=== PATIENT | female | born 1975 | race Caucasian/White ===

== ENCOUNTER 2019-12-01 17:21 | Observation (INO) ==
[2019-12-01] MEDS ORDERED: Isovue-370 500 ML BOTTLE IVP ONE (20:23)
[2019-12-01 21:04] LABS: Bilirubin,Urine Negative (Negative); Blood,Urine Negative (Negative); Clarity,Urine Clear (Clear); Color,Urine Light-Yellow (Yellow); Glucose,Urine (UA) Normal (Normal); Ketones,Urine Negative (Negative); Leukocyte Esterase,Urine Negative (Negative); Nitrite,Urine Negative (Negative); Protein,Urine Trace mg/dL (Neg-Trace); Specific Gravity,Urine 1.021 (1.010-1.025); Urobilinogen,Urine Normal (Normal)
[2019-12-01 21:45] LABS: Basophils % 0.5 %; Eosinophils # 0.2 K/mcL (0.0-0.6); Eosinophils % 1.7 %; Hematocrit 31.5 % (35.3-44.9); Hemoglobin 8.8 g/dL (11.5-15.4); Immature Granulocytes % 0.2 % (0-4); Lymphocytes # 1.8 K/mcL (0.6-4.6); Lymphocytes % 20.6 %; Mean Corpuscular HGB Conc 27.9 g/dL (31.6-35.5); Mean Corpuscular Hemoglobin 19.6 pg (28.0-33.3); Mean Platelet Volume 9.3 fL (9.4-12.4); Monocytes # 0.5 K/mcL (0.0-1.3); Monocytes % 5.9 %; Neutrophils # 6.2 K/mcL (1.6-8.9); Platelet Count 283 K/mcL (140-400); Red Cell Distribution Width 19.1 % (11.5-14.5); Segmented Neutrophils % 71.1 %; White Blood Count 8.7 K/mcL (4.3-11.1)
[2019-12-01 22:01] LABS: BUN/Creatinine Ratio 21 (6-26); Blood Urea Nitrogen 12 mg/dL (6-20); Calcium 8.8 mg/dL (8.6-10.3); Carbon Dioxide 27 mEq/L (23-29); Chloride 101 mEq/L (98-107); Glucose 94 mg/dL (70-105); Osmolality,Calculated 280 (280-300); Potassium 3.9 mEq/L (3.5-5.1); Sodium 135 mEq/L (136-145); eGFR For African Americans > 60 (> 60); eGFR For Non-African Americans > 60 (> 60)
[2019-12-01 22:02] LABS: Troponin I < 0.03 ng/mL (< 0.04)
[2019-12-01 22:06] LABS: Hypochromasia Present (Not Present); Polychromasia 1+ (Not Present)
[2019-12-01 22:59] LABS: Alanine Aminotransferase 16 Units/L (7-52); Albumin 3.7 g/dL (3.5-5.7); Albumin/Globulin Ratio 0.8 (1.1-2.2); Alkaline Phosphatase 107 Units/L (34-104); Aspartate Amino Transferase 16 Units/L (13-39); Bilirubin,Direct 0.1 mg/dL (0.0-0.2); Bilirubin,Indirect 0.2 mg/dL (0.0-1.0); Bilirubin,Total 0.3 mg/dL (0.3-1.0); Globulin 4.4 g/dL (2.4-3.5); Total Protein 8.1 g/dL (6.4-8.9)
[2019-12-02 02:38] LABS: Adenovirus Not Detected (Not Detect); Bordetella Pertussis Not Detected (Not Detect); Chlamydophila pneumoniae Not Detected (Not Detect); Coronavirus 229E Not Detected (Not Detect); Coronavirus HKU1 Not Detected (Not Detect); Coronavirus NL63 Not Detected (Not Detect); Coronavirus OC43 Not Detected (Not Detect); Human Metapneumovirus Not Detected (Not Detect); Human Rhinovirus/Enterovirus Not Detected (Not Detect); Influenza A Subtype 2009 H1 Not Detected (Not Detect); Influenza B Not Detected (Not Detect); Mycoplasma pneumoniae Not Detected (Not Detect); Parainfluenza Virus 1 Not Detected (Not Detect); Parainfluenza Virus 2 Not Detected (Not Detect); Parainfluenza Virus 3 Not Detected (Not Detect); Parainfluenza Virus 4 Not Detected (Not Detect); Respiratory Syncytial Virus Not Detected (Not Detect); SARS-CoV-2 Not Detected (Not Detect)
[2019-12-02] MEDS ORDERED: Acetaminophen 325 MG TABLET PO PRN (04:30)
[2019-12-02] MEDS ORDERED: Naloxone 0.4 MG/ML INJ IVP PRN (04:30)
[2019-12-02] MEDS ORDERED: Perflutren Lipid Microsphere 1.3 ML in 0.9 % Sodium Chloride 8.7 ML IVP PRN (06:14)
[2019-12-02 06:29] LABS: INR 1.2; Prothrombin Time 13.5 Seconds (9.4-12.1)
[2019-12-02 06:31] LABS: Hematocrit 31.5 % (35.3-44.9); Hemoglobin 8.7 g/dL (11.5-15.4); Mean Corpuscular HGB Conc 27.6 g/dL (31.6-35.5); Mean Corpuscular Hemoglobin 19.5 pg (28.0-33.3); Mean Corpuscular Volume 70.5 fL (83.0-100.0); Mean Platelet Volume 9.3 fL (9.4-12.4); Platelet Count 275 K/mcL (140-400); Red Blood Count 4.47 M/mcL (3.82-4.97); Red Cell Distribution Width 19.2 % (11.5-14.5); White Blood Count 8.5 K/mcL (4.3-11.1)
[2019-12-02 06:41] LABS: Phosphorous 3.2 mg/dL (2.7-4.5)
[2019-12-02 06:47] LABS: % Iron Saturation 3 % (15-50); Iron 17 mcg/dL (50-170); Transferrin 432 mg/dL (203-362)
[2019-12-02 06:57] LABS: Thyroid Stimulating Hormone 0.901 mcIU/mL (0.340-5.600)
[2019-12-02 07:05] LABS: Ferritin < 8 ng/mL (10-120)
[2019-12-02 07:07] LABS: Folate 5.4 ng/mL (3.0-16.0)
[2019-12-02] MEDS: Pantoprazole 40 MG VIAL IVP SCH (08:08)
[2019-12-02] MEDS: Gabapentin 300 MG CAPSULE PO SCH ×3 (14:47→21:08)
[2019-12-02] MEDS ORDERED: Iron Sucrose Complex 250 MG in 0.9 % Sodium Chloride 250 ML IVPB SCH (16:30)
[2019-12-02] MEDS: Iron Sucrose Complex 250 MG in 0.9 % Sodium Chloride 250 ML IVPB SCH (18:22)
[2019-12-02] MEDS: *HR* Promethazine 25 MG/ML VIAL IVP PRN (21:12)
[2019-12-03 06:38] LABS: Hematocrit 34.6 % (35.3-44.9); Mean Corpuscular Hemoglobin 18.9 pg (28.0-33.3); Mean Corpuscular Volume 72.5 fL (83.0-100.0); Mean Platelet Volume 10.2 fL (9.4-12.4); Platelet Count 226 K/mcL (140-400); Red Blood Count 4.77 M/mcL (3.82-4.97); Red Cell Distribution Width 19.6 % (11.5-14.5); White Blood Count 6.4 K/mcL (4.3-11.1)
[2019-12-03 07:00] LABS: BUN/Creatinine Ratio 19 (6-26); Blood Urea Nitrogen 11 mg/dL (6-20); Calcium 8.8 mg/dL (8.6-10.3); Carbon Dioxide 23 mEq/L (23-29); Chloride 104 mEq/L (98-107); Glucose 96 mg/dL (70-105); Osmolality,Calculated 277 (280-300); Potassium 3.8 mEq/L (3.5-5.1); Sodium 134 mEq/L (136-145); eGFR For African Americans > 60 (> 60); eGFR For Non-African Americans > 60 (> 60)
[2019-12-03] MEDS ORDERED: Lidocaine -MPF 2% 5 ML VIAL SQ ONE (11:35)
[2019-12-03] MEDS ORDERED: *HR* Propofol 500 MG/50 ML BOTTLE IVP ONE (11:35)
[2019-12-03] MEDS: Pantoprazole 40 MG VIAL IVP SCH (11:44)
[2019-12-03 15:04] LABS: Hepatitis B Surface Antigen Nonreactive (Nonreactive)
[2019-12-03 15:33] LABS: Hepatitis B Core IgM Nonreactive (Nonreactive)
[2019-12-03 15:35] LABS: Hepatitis A Antibody IgM Nonreactive (Nonreactive)
[2019-12-03 17:43] LABS: Hepatitis C Virus Antibody Reactive (Nonreactive)
[2019-12-03] MEDS: Iron Sucrose Complex 250 MG in 0.9 % Sodium Chloride 250 ML IVPB SCH (17:57)
[2019-12-03] MEDS ORDERED: diazePAM 5 MG TABLET PO SCH (18:00)
[2019-12-03] MEDS ORDERED: (Dextroamphetamine/Amphetamine [Adderall 20 Mg Tablet PO SCH (18:00)
[2019-12-03] MEDS: Gabapentin 300 MG CAPSULE PO SCH ×2 (18:12→20:38)
[2019-12-03] MEDS: diazePAM 10 MG TABLET PO SCH (20:37)
[2019-12-03] MEDS: (Dextroamphetamine/Amphetamine [Adderall 20 Mg Tablet PO SCH (20:41)
[2019-12-03] MEDS ORDERED: QUEtiapine Fumarate 100 MG TABLET PO SCH (21:00)
[2019-12-04 06:24] VITALS: BP 97/61
[2019-12-04] MEDS: *HR* Promethazine 25 MG/ML VIAL IVP PRN (06:27)
[2019-12-04] MEDS: diazePAM 10 MG TABLET PO SCH (08:15)
[2019-12-04] MEDS: Gabapentin 300 MG CAPSULE PO SCH (08:16)
[2019-12-04] MEDS: (Dextroamphetamine/Amphetamine [Adderall 20 Mg Tablet PO SCH (08:16)
[2019-12-04] MEDS: Iron Sucrose Complex 250 MG in 0.9 % Sodium Chloride 250 ML IVPB SCH (08:44)
[2019-12-04] MEDS: Pantoprazole 40 MG VIAL IVP SCH (08:44)
[2019-12-04] MEDS ORDERED: FLU Vac QV 20-21 (6Month+)/PF 0.5 ML SYRINGE IM ONE (09:42)
== END 2019-12-04 11:36 | disposition home or self-care (01) ==
LOC: EMEROOARM 17:21 → 3NENU 17:21 → SUATTDRO 12-02 02:44 → 3NENU 12-02 03:19
PROVIDERS: ADMIT Student in an Organized Health Care Education/Training Program; ATTEND Student in an Organized Health Care Education/Training Program
PROC: ENDOEBX (2019-12-03 11:15)